=== PATIENT | male | born 1955 | race Caucasian/White ===

== ENCOUNTER → 2016-04-24 | Outpatient (CLI) | payer BC | END | disposition short-term general hospital (02) | LOC: CLORTH 08:54 | DX: M75.102 Unspecified rotator cuff tear or rupture of left shoulder, not specified as traumatic (principal); M75.22 Bicipital tendinitis, left shoulder; M75.50 Bursitis of unspecified shoulder; M19.012 Primary osteoarthritis, left shoulder ==

== ENCOUNTER → 2016-05-08 | Outpatient (CLI) | payer BC | END | disposition short-term general hospital (02) | LOC: CLORTH 08:11 | DX: Z47.89 Encounter for other orthopedic aftercare (principal) ==

== ENCOUNTER → 2016-06-19 | Outpatient (CLI) | payer BC | END | disposition short-term general hospital (02) | LOC: CLORTH 11:11 | DX: Z47.89 Encounter for other orthopedic aftercare (principal) ==

== ENCOUNTER → 2016-07-31 | Outpatient (CLI) | payer BC | END | disposition short-term general hospital (02) | LOC: CLORTH 10:31 | DX: Z47.89 Encounter for other orthopedic aftercare (principal) ==